=== PATIENT | female | born 1965 | race Caucasian/White ===

== ENCOUNTER 2019-01-20 15:20 | Emergency (ER) | payer OTHER ==
[2019-01-20 16:23] LABS: Absolute Lymphocytes (CBC) 1.1 K/uL (0.7-4.9); Basophils % 0.3 % (0-1.3); Lymphocytes % 8.1 % (15.3-44.8); MPV 8.6 fL (7.6-11.3); RBC Red Blood Cell Count 4.27 M/uL (3.86-4.86)
[2019-01-20 16:33] LABS: Urine Bacteria >50 /HPF (<20); Urine Culture Reflex Order REFLEXED; Urine Mucus 2+ /HPF (NONE SEEN)
[2019-01-20 16:41] LABS: Potassium 3.8 mmol/L (3.5-5.1)
[2019-01-20 16:47] LABS: Urine Blood 3+ (NEG); Urine Glucose NEGATIVE (NEG); Urine Protein 2+ (NEG); Urine Specific Gravity 1.015 (1.005-1.030); Urine pH 6.5 (5.0-7.0)
--- NOTE | 2019-01-20 16:55 | RAD REPORT ---
EXAM DESCRIPTION: CT - Stone Protocol - 01/20/2019 4:27 pm CLINICAL HISTORY: Abdominal pain, right flank pain, fever, prior hysterectomy COMPARISON: None. TECHNIQUE: Axial 5 mm thick images were obtained without oral or IV contrast. The astxj-ha-xcct span s the entirety of the system partially obscuring uppermost abdomen and lung bases. All CT scans are performed using dose optimization technique as appropriate and may include automated exposure control or mA/KV adjustment according to patient size. FINDINGS: A 4.5 centimeter staghorn calculus fills the upper pole calices on the left. There is a 2. 5 centimeter staghorn calculus at the left UPJ. Numerous additional calculi are seen in the lower [place] e of the left kidney where there is additional significant cortical thinning. Moderate hydronephrosis of the pelvis and calices in the mid and lower pole left kidney are present. Patient has substantial moderate severity hydronephrosis of the pelvis and calices of the right collecting system with 0 thi s cortical or calyx calculi seen. A 2.5 centimeter right UPJ staghorn calculus is present. There is a n 18 millimeter long calculus in the mid right ureter. There is moderate hydronephrosis of the pelvis between the UPJ staghorn calculus in the mid ureter calculus. More distally the ureter is decompress ed. No bladder calculus. No suspicious renal masses. Isodense masses and pyelonephritis are not exclu ded on a stone protocol CT scan. No urinary bladder suspicious finding. No significant adrenal findin g. Imaged portions of the liver, spleen and pancreas show no suspicious findings on non-contrast imaging . Cholecystectomy clips are present. No biliary tree dilatation. No suspicious bowel findings. No appendicitis findings. Uterus is absent. Left ovary shows no significant finding. Left ovary is displaced anteriorly and sup eriorly by the hysterectomy change. In the corresponding area of the right pelvis there is a 5.7 by 3 .3 centimeter soft tissue mass that is believed to be an enlarged right ovary. This may contain 2 cys ts approximately 2.5 cm in size that caused the enlargement. In the absence of oral and IV contrast i s difficult to fully distinguish the margins of the right ovary from the abutting on opacified bowel. No edema or stranding in this region. No calcifications. No hernia, mass or bulky lymphadenopathy noted. No free air, free fluid or inflammatory stranding. No significant bony abnormality. IMPRESSION: Patient has bilateral staghorn calculi. There is additional 18 millimeter long calcifica tion in the mid right ureter. The left UPJ staghorn calculus causes moderate mid and lower pole hydronephrosis. Moderate right-sided hydronephrosis due to the right UPJ staghorn calculus. There is moderate hydrone phrosis between the mid ureter stone and the UPJ staghorn calculus. Right ovarian mass versus enlarged right ovary due to cysts. Patient is relatively cold for benign re nal cysts. Patient is status post hysterectomy. Ovaries are displaced anteriorly and superiorly with abutting sm all bowel loops. This will likely make it difficult to evaluate on transabdominal pelvic sonography. Ovaries are likely beyond the range of endovaginal sonography. Isodense masses and pyelonephritis are not excluded on stone protocol technique.
[2019-01-20] MEDS ORDERED: CEFTRIAXONE/SWI 1gm 1 GM/10 ML SYR ONE (16:56)
--- NOTE | 2019-01-20 17:16 | ER ---
Nurse's Notes [facility] Name: Tabby Mosley Age: 53 yrs Sex: Female : 1965 Arrival Date: 01/20/2019 Time: 15:30 Bed 28 Private MD: Diagnosis: Acute kidney failure;Calculus of kidney and ureter;Other hydronephrosis;Urinary tract infection, site not specified Presentation: 01/20 15:36 Presenting complaint: Right flank pain and subjective fever x 5 days. On Cipro Day 3 hb for UTI. Transition of care: patient was not received from another setting of care. Onset of symptoms was January 15, 2019. Risk Assessment: Do you want to hurt yourself or someone else? Patient reports no desire to harm self or others. Initial Sepsis Screen: Does the patient meet any 2 criteria? No. Patient's initial sepsis screen is negative. Does the patient have a suspected source of infection? No. Patient's initial sepsis screen is negative. Care prior to arrival: None. 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 - Social history:: Smoking status: Patient/guardian denies using tobacco. - Ebola Screening: : No symptoms or risks identified at this time. Screenin:10 Abuse screen: Denies threats or abuse. Denies injuries from another. Nutritional rv screening: No deficits noted. Tuberculosis screening: No symptoms or risk factors identified. Fall Risk None identified. Assessment: 16:10 General: Appears in no apparent distress. comfortable, Behavior is calm, cooperative. rv Pain: Complains of pain in back. Neuro: Level of Consciousness is awake, alert, obeys commands, Oriented to person, place, time, situation. Cardiovascular: Patient's skin is warm and dry. Respiratory: Airway is patent. GI: No signs and/or symptoms were reported involving the gastrointestinal system. : No signs and/or symptoms were reported regarding the genitourinary system. EENT: No signs and/or symptoms were reported regarding the EENT system. Derm: Skin is intact. Musculoskeletal: Reports pain in back. 18:00 Reassessment: Patient appears in no apparent distress at this time. Patient and/or rv family updated on plan of care and expected duration. Pain level reassessed. Patient is alert, oriented x 3, equal unlabored respirations, skin warm/dry/pink. HENRIK Fleming talked to the patient and explained the results and plan of care. patient is for transfer to another hospital for urology care. 20:07 Reassessment: Patient appears in no apparent distress at this time. Patient and/or rv family updated on plan of care and expected duration. Pain level reassessed. Patient is alert, oriented x 3, equal unlabored respirations, skin warm/dry/pink. patient updated on transportation time. awaiting EMS. report given to Janett Hinojosa of [facility]. patient verbalized pain getting better after fluid administration. Vital Signs: 15:39 BP 148 / 82; Pulse 79; Resp 16; Temp 98.4; Pulse Ox 97% on R/A; Weight 83.46 kg; Height hb 5 ft. 6 in. (167.64 cm); Pain 8/10; 17:30 BP 106 / 82; Pulse 70; Resp 15; Pulse Ox 97% on R/A; rv 18:46 BP 120 / 81; Pulse 66; Resp 16; Pulse Ox 99% on R/A; rv 18:59 BP 116 / 72; Pulse 71; Resp 15; Pulse Ox 100% on R/A; rv 20:04 BP 125 / 70; Pulse 74; Resp 15; Pulse Ox 98% ; rv 15:39 Body Mass Index 29.70 (83.46 kg, 167.64 cm) hb ED Course: 15:30 Patient arrived in ED. mr 15:38 Triage completed. hb 15:39 Arm band placed on. hb 15:40 Bernadette Stokes F[facility]-C [facility]. kb 15:40 Jeremy Mckeon MD is Attending Physician. kb 15:43 Luke Chu RN is Primary Nurse. rv 16:05 Inserted saline lock: 20 gauge in left forearm, using aseptic technique. Blood rv collected. 16:09 Basic Metabolic Panel Sent. rv 16:10 CBC with Diff Sent. rv 16:10 Urine Microscopic Only Sent. rv 16:11 Patient has correct armband on for positive identification. Bed in low position. Call rv light in reach. Side rails up X 1. Adult w/ patient. Pulse ox on. NIBP on. 16:26 CT completed. Patient tolerated procedure well. Patient moved to CT. Patient moved back sd from CT. 16:28 CT Stone Protocol In Process Unspecified. EDMS 17:00 Urine Culture Sent. jp3 17:15 Mark Mccabe MD is Hospitalizing Provider. kb 17:15 Procalcitonin Sent. rv 17:15 Blood Culture Adult (2) Sent. rv 17:25 First set of blood cultures drawn by me. jp3 17:40 Second set of blood cultures drawn by me. jp3 18:46 No provider procedures requiring assistance completed. rv 20:20 Patient transferred, IV remains in place. rv Administered Medications: 17:02 Drug: Rocephin 1 grams Route: IV; Rate: calculated rate; Site: left forearm; rv 20:07 Follow up: IV Status: Completed infusion rv 17:54 Drug: NS 0.9% 1000 ml Route: IV; Rate: 125 ml/hr; Site: right antecubital; rv 20:07 Follow up: IV Status: Completed infusion rv Outcome: 17:16 Decision to Hospitalize by Provider. kb 18:46 ER care complete, transfer ordered by MD. kb 20:04 Transferred by ground EMS to [facility], Transfer form completed. rv X-rays sent w/ patient. 20:04 Condition: good 20:04 Instructed on the need for transfer. 20:20 Patient left the ED. rv Signatures: Dispatcher [employer] EDMS Bernadette Stokes, LICENSE EXAMINERCristian LICENSE EXAMINER-Naida Robertson Heather, RN RN hb Jeremy Vilchis Ronaldo RN RN rv Miguel Angel Blanchard jp3 Corrections: (The following items were deleted from the chart) 19:19 15:39 PSHx: None; hb rv
--- NOTE | 2019-01-20 17:17 | EDPHYS ---
Physician Documentation [facility] Name: Tabby Mosley Age: 53 yrs Sex: Female : 1965 Arrival Date: 01/20/2019 Time: 15:30 Bed 28 Private MD: ED Physician Jeremy Mckeon HPI: 01/20 16:58 This 53 yrs old Female presents to ER via Ambulatory with complaints of kb Fever, Back Pain. 16:59 The patient complains of pain in the right flank. The pain does not radiate. Onset: The kb symptoms/episode began/occurred 1 week(s) ago. Modifying factors: The symptoms are alleviated by nothing. the symptoms are aggravated by palpation/percussion. Associated signs and symptoms: Pertinent positives: fever, Pertinent negatives: diarrhea, dizziness, dysuria, urinary frequency, headache, hematuria, nausea, pain radiating to the lower extremities, vomiting. Severity of pain: At its worst the pain was moderate in the emergency department the pain is unchanged. The patient has experienced similar episodes in the past, a few times. The patient has been recently seen at an urgent care, this week, for similar complaints, labs were performed, was given a prescription for antibiotics. Pt reports she started having right kidney pain a week ago. STates this has happened before and normally she cures it with a lot of water and cranberry juice, but that didn't help this time. STates she went to on Friday, was diagnosed with a UTI and started on cipro twice a day. States fever is still spiking and pain is still persistent. . 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 - Social history:: Smoking status: Patient/guardian denies using tobacco. - Ebola Screening: : No symptoms or risks identified at this time. ROS: 16:56 ENT: Negative for injury, pain, and discharge, Neck: Negative for injury, pain, and kb swelling, Cardiovascular: Negative for chest pain, palpitations, and edema, Respiratory: Negative for shortness of breath, cough, wheezing, and pleuritic chest pain, Abdomen/GI: Negative for abdominal pain, nausea, vomiting, diarrhea, and constipation, : Negative for injury, bleeding, discharge, and swelling, MS/Extremity: Negative for injury and deformity, Skin: Negative for injury, rash, and discoloration, Neuro: Negative for headache, weakness, numbness, tingling, and seizure. 16:56 Constitutional: Positive for chills, fever, malaise. 16:56 Back: Positive for flank pain, on the right. Exam: 16:57 Constitutional: This is a well developed, well nourished patient who is awake, alert, kb and in no acute distress. Head/Face: Normocephalic, atraumatic. ENT: Nares patent. No nasal discharge, no septal abnormalities noted. Tympanic membranes are normal and external auditory canals are clear. Oropharynx with no redness, swelling, or masses, exudates, or evidence of obstruction, uvula midline. Mucous membranes moist. Neck: Trachea midline, no thyromegaly or masses palpated, and no cervical lymphadenopathy. Supple, full range of motion without nuchal rigidity, or vertebral point tenderness. No Meningismus. Chest/axilla: Normal chest wall appearance and motion. Nontender with no deformity. No lesions are appreciated. Cardiovascular: Regular rate and rhythm with a normal S1 and S2. No gallops, murmurs, or rubs. Normal PMI, no JVD. No pulse deficits. Respiratory: Lungs have equal breath sounds bilaterally, clear to auscultation and percussion. No rales, rhonchi or wheezes noted. No increased work of breathing, no retractions or nasal flaring. Abdomen/GI: Soft, non-tender, with normal bowel sounds. No distension or tympany. No guarding or rebound. No evidence of tenderness throughout. Skin: Warm, dry with normal turgor. Normal color with no rashes, no lesions, and no evidence of cellulitis. MS/ Extremity: Pulses equal, no cyanosis. Neurovascular intact. Full, normal range of motion. Neuro: Awake and alert, GCS 15, oriented to person, place, time, and situation. Cranial nerves II-XII grossly intact. Motor strength 5/5 in all extremities. Sensory grossly intact. Cerebellar exam normal. Normal gait. 16:57 Back: CVA tenderness, that is moderate, is noted on the right. Vital Signs: 15:39 BP 148 / 82; Pulse 79; Resp 16; Temp 98.4; Pulse Ox 97% on R/A; Weight 83.46 kg; Height hb 5 ft. 6 in. (167.64 cm); Pain 8/10; 17:30 BP 106 / 82; Pulse 70; Resp 15; Pulse Ox 97% on R/A; rv 18:46 BP 120 / 81; Pulse 66; Resp 16; Pulse Ox 99% on R/A; rv 18:59 BP 116 / 72; Pulse 71; Resp 15; Pulse Ox 100% on R/A; rv 20:04 BP 125 / 70; Pulse 74; Resp 15; Pulse Ox 98% ; rv 15:39 Body Mass Index 29.70 (83.46 kg, 167.64 cm) hb MDM: 15:41 Patient medically screened. kb 16:56 Data reviewed: vital signs, nurses notes. Data interpreted: Pulse oximetry: on room air kb is 97 %. Interpretation: normal. 17:13 Physician consultation: Adam Zamarripa MD was called at 17:13, voicemail left. kb 17:13 Physician consultation: Mark Mccabe MD was contacted at 17:14, regarding admission, to the medical/surgical unit. patient's condition, and will see patient in ED, shortly. 17:54 ED course: Discussed CT findings with Dr Zamarripa. Dr Zamarripa requests transfer due to staghorn calculi. 17:55 ED course: transfer initiated to [facility]. kb 18:26 Counseling: I had a detailed discussion with the patient and/or guardian regarding: the historical points, exam findings, and any diagnostic results supporting the discharge/admit diagnosis, lab results, radiology results, the need to transfer to another facility, for higher level of care, [facility] does not immediately have the required specialist. 18:27 ED course: Dr Garza accepts pt for consult at [facility]. Awaiting hospitalist kb callback. . 18:41 ED course: [facility] hospitalist, Dr Pruitt, accepts pt for transfer. . kb 01/20 15:41 Order name: Urine Microscopic Only; Complete Time: 16:37 kb 01/20 15:48 Order name: CBC with Diff kb 01/20 15:48 Order name: Basic Metabolic Panel; Complete Time: 16:47 kb 01/20 16:13 Order name: Urine Dipstick--Ancillary (enter results); Complete Time: 16:51 bd 01/20 16:13 Order name: Urine --Ancillary (enter results); Complete Time: 16:51 bd 01/20 16:40 Order name: Urine Culture EDMS 01/20 15:41 Order name: Urine Dipstick-Ancillary (obtain specimen); Complete Time: 16:09 kb 01/20 15:48 Order name: IV Start; Complete Time: 16:09 kb 01/20 16:13 Order name: CT Stone Protocol; Complete Time: 17:19 kb 01/20 17:13 Order name: Procalcitonin; Complete Time: 18:23 kb 01/20 17:13 Order name: Blood Culture Adult (2) kb Administered Medications: 17:02 Drug: Rocephin 1 grams Route: IV; Rate: calculated rate; Site: left forearm; rv 20:07 Follow up: IV Status: Completed infusion rv 17:54 Drug: NS 0.9% 1000 ml Route: IV; Rate: 125 ml/hr; Site: right antecubital; rv 20:07 Follow up: IV Status: Completed infusion rv Disposition: 01/21 08:57 Co-signature as Attending Physician, Jeremy Mckeon MD I agree with the assessment and kdr plan of care. Disposition: 01/20/19 18:46 Transfer ordered to [facility]. Diagnosis are Acute kidney failure, Calculus of kidney and ureter, Other hydronephrosis, Urinary tract infection, site not specified. - Reason for transfer: Higher level of care. - Accepting physician is Dr Pruitt. - Condition is Stable. - Problem is new. - Symptoms are unchanged. Signatures: Dispatcher [employer] EDOH Bernadette Stokes, IKE KINCAID-Jeremy Sullivan MD MD [facility] Mora Lincoln RN RN Luke Gurrola RN RN rv Corrections: (The following items were deleted from the chart) 01/20 17:55 17:16 Hospitalization Ordered by Mark Mccabe MD for Inpatient Admission. Preliminary kb diagnosis is Urinary tract infection, site not specified; Calculus of kidney and ureter. Bed requested for Telemetry/MedSurg (Inpatient). Status is Inpatient Admission. Condition is Stable. Problem is new. Symptoms are unchanged. UTI on Admission? Yes. kb 18:45 18:41 ED course: [facility] hospitalist accepts pt for transfer. . kb kb 19:19 15:39 PSHx: None; hb rv 20:20 18:46 01/20/2019 18:46 Transfer ordered to [facility]. Diagnosis is rv Acute kidney failure; Calculus of kidney and ureter; Other hydronephrosis; Urinary tract infection, site not specified. Reason for transfer: Higher level of care. Accepting physician is Dr Pruitt. Condition is Stable. Problem is new. Symptoms are unchanged. kb
[2019-01-20] MEDS ORDERED: NA CHLORIDE 0.9% 500 ML ONE (17:26)
--- NOTE | 2019-01-20 18:07 | P.CNS ---
Date of Consult: 01/20/19 Chief Complaint: UTI flank pain History of Present Illness: Patient is a 53-year-old female with no past medical history comes in with failed outpatient treatment for UTI. Patient has flank pain fevers chills. Patient was on antibiotics since Friday. Patient's symptoms were progressively worsening constant moderate. In the ER her workup revealed elevated white blood cell count positive UA CT scan showed multiple staghorn calculi. Patient was given IV antibiotics and IV fluids. Hospital service consulate for admission. Home medications list reviewed: Yes - Past Medical/Surgical History Diabetic: No Past Medical History: Patient denies medical history -: None -: Hysterectomy -: Cholecystectomy -: Right thyroid nodule - Family History Mother Medical History: Cancer (Breast) Father Medical History: Cancer (Prostate) - Social History Smoking Status: Never smoker Alcohol use: No Place of Residence: Home Review of Systems 10-point ROS is otherwise unremarkable Physical Examination General: Alert, Oriented x3, Mild distress, Obese HEENT: Atraumatic, PERRLA, Mucous membr. moist/pink, EOMI, Sclerae nonicteric Neck: Supple, 2+ carotid pulse no bruit, No LAD, Without JVD or thyroid abnormality Respiratory: Clear to auscultation bilaterally, Normal air movement Cardiovascular: No edema, Normal pulses, Regular rate/rhythm, Normal S1 S2 Gastrointestinal: Normal bowel sounds, Soft and benign, Non-distended, No tenderness, Other (Right flank tenderness) Musculoskeletal: No tenderness Integumentary: No rashes Neurological: Normal gait, Normal speech, Normal tone, Normal affect Laboratory Data (last 24 hrs) 01/20/19 16:05: Sodium 135 L, Potassium 3.8, BUN 32 H, Creatinine 2.50 H, Glucose 101 01/20/19 16:05: WBC 13.2 H, Hgb 11.9 L, Hct 35.0 L, Plt Count 370 Imagings Data: CT scan shows multiple staghorn calculi hydronephrosis. Ovarian cyst - Problems (1) Staghorn calculus Current Visit: Yes Status: Acute (2) Hydronephrosis Current Visit: Yes Status: Acute (3) Acute kidney injury Current Visit: Yes Status: Acute (4) Ovarian cyst Current Visit: Yes Status: Acute Conclusions/Impression: Admit orders placed patient seen and examined. Spoke with Dr. Zamarripa he recommends transfer to higher level of care. He does not operate on staghorn calculi. ER mid-level Bernadette notified. Patient will be transferred to higher level of care from ER.
[2019-01-20 21:01] LABS: Blood Morphology Comment NOT SEEN (NOT SEEN); Platelet Estimate ADEQ; Urine White Blood Cell Casts OK
[2019-01-21 01:19] VITALS: TEMP 98.4
[2019-01-21 01:25] VITALS: BP 125/70; O2SAT 98
== END 2019-01-20 20:20 | disposition short-term general hospital (02) ==
LOC: ER 15:20 → UNDOADMIN 17:26 → ERHOLD 17:26 → ER 20:20
DX: N17.9 Acute kidney failure, unspecified (principal); N13.2 Hydronephrosis with renal and ureteral calculous obstruction; N39.0 Urinary tract infection, site not specified
CPT/HCPCS: 87040 ×2; 87088; 85025; 87086; 80048; 36415; 81025; 84145; 76377; 74176; J0696; 81003; 81015; 96365; 96366; 99285